=== PATIENT | male | born 1985 | race American Indian/Alaskan Native ===

== ENCOUNTER 2020-12-27 12:21 | Emergency (ER) | payer OTHER ==
[2020-12-27 12:30] VITALS: BP 121/71
--- NOTE | 2020-12-27 13:05 | XRay Report ---
Mandible series-4 views INDICATION: right jaw pain/cant open jaw all the way. COMPARISON: None. IMPRESSION: No acute osseous abnormality. Soft tissues are normal. Normal alignment. Signer Name: Abdirashid Carcamo MD Signed: 12/27/2020 1:01 PM Workstation Name: [id number]
--- NOTE | 2020-12-27 13:55 | Emergency Department Report ---
ED General Adult HPI - General Chief complaint: Dental/Oral Stated complaint: MOUTH PAIN Time Seen by Provider: 12/27/20 13:06 Source: patient Mode of arrival: Ambulatory Limitations: No Limitations - History of Present Illness Initial comments: This is a 35-year-old male without any medical history who presents to ED today complaining of right jaw pain x2 days. Patient states that he was performing oral sex on his girlfriend when all of a sudden he started experiencing right- sided jaw pain. Patient states that he is having pain with trying to ext ensively open his mouth. Patient states that he was not assaulted had no trauma or injuries to the jaw. She states that he is having jaw pain and worsened with opening and closing his mouth. Patient is able to eat and swallow without any problems. He denies throat pain or fever or any other problems. Severity scale (0 -10): 5 Quality: aching - Related Data Previous Rx's Medication Instructions Recorded Last Taken Type Acetaminophen [Tylenol Extra 500 mg PO Q6H #40 tab 12/27/20 Unknown Rx Strength] predniSONE [Deltasone] 50 mg PO QDAY 3 Days #3 tab 12/27/20 Unknown Rx Allergies Allergy/AdvReac Type Severity Reaction Status Date / Time No Known Allergies Allergy Unverified 12/27/20 12:26 ED Review of Systems ROS: Stated complaint: MOUTH PAIN Other details as noted in HPI Comment: All other systems reviewed and negative ED Past Medical Hx - Past Medical History Previous Medical History?: No - Surgical History Additional Surgical History: LEFT LEG-TIBIA - Social History Smoking Status: Never Smoker Substance Use Type: None - Medications Home Medications: Home Medications Medication Instructions Recorded Confirmed Last Taken Type Acetaminophen [Tylenol Extra 500 mg PO Q6H #40 tab 12/27/20 Unknown Rx Strength] predniSONE [Deltasone] 50 mg PO QDAY 3 Days #3 tab 12/27/20 Unknown Rx ED Physical Exam - General Limitations: No Limitations General appearance: alert, in no apparent distress - Head Head exam: Present: atraumatic, normocephalic - Eye Eye exam: Present: normal appearance, PERRL, EOMI. Absent: conjunctival injection - ENT ENT exam: Present: mucous membranes moist, other (No TMJ tenderness. No dislocation, no deformity noted) - Expanded ENT Exam Expanded Mouth exam: Present: normal external inspection Teeth exam: Present: normal inspection. Absent: dental caries Throat exam: Positive: normal inspection. Negative: tonsillar erythema, tonsillomegaly, tonsillar exudate - Neck Neck exam: Present: normal inspection, full ROM. Absent: tenderness, lymphadenopathy, thyromegaly - Respiratory Respiratory exam: Present: normal lung sounds bilaterally. Absent: respiratory distress - Cardiovascular Cardiovascular Exam: Present: regular rate, normal rhythm. Absent: systolic murmur, diastolic murmur, rubs, gallop - GI/Abdominal GI/Abdominal exam: Present: soft, normal bowel sounds - Rectal Rectal exam: Present: deferred - Extremities Exam Extremities exam: Present: normal inspection - Back Exam Back exam: Present: normal inspection - Neurological Exam Neurological exam: Present: alert, oriented X3 - Psychiatric Psychiatric exam: Present: normal affect, normal mood - Skin Skin exam: Present: warm, dry, intact, normal color. Absent: rash ED Course Vital Signs 12/27/20 12:29 Temperature 97.8 F Pulse Rate 77 Respiratory 18 Rate Blood Pressure 121/71 O2 Sat by Pulse 98 Oximetry ED Medical Decision Making - Radiology Data Radiology results: report reviewed, image reviewed Fluoro Time In Minutes: Mandible series-4 views INDICATION: right jaw pain/cant open jaw all the way. COMPARISON: None. IMPRESSION: No acute osseous abnormality. Soft tissues are normal. Normal alignment. Signer Name: Abdirashid Carcamo MD Signed: 12/27/2020 1:01 PM Workstation Name: [id number] Transcribed By: GAY Dictated By: Abdirashid Carcamo MD Electronically Authenticated By: Abdirashid Carcamo MD Signed Date/Time: 12/27/20 1301 - Medical Decision Making 35-year-old male presents with jaw muscle strain. Discussed heat compression 3 times a day. Discussed pain medicine for inflammation such as Motrin. Patient is in no acute or respiratory distress. Airway was patent patient speaking in normal sentences and no distress. X-ray shows no acute findings. Critical care attestation.: If time is entered above; I have spent that time in minutes in the direct care of this critically ill patient, excluding procedure time. ED Disposition Clinical Impression: Strain of jaw Disposition: DC-01 TO HOME OR SELFCARE Is pt being admited?: No Does the pt Need Aspirin: No Condition: Stable Instructions: Muscle Strain, [id number], How to Use Cold Therapy Additional Instructions: Make sure to follow up with the primary care physician as discussed. Take all your medications as you've been prescribed. If you have any worsening symptoms or develop new symptoms please return to ED immediately. Prescriptions: predniSONE [Deltasone] 50 mg PO QDAY 3 Days #3 tab Acetaminophen [Tylenol Extra Strength] 500 mg PO Q6H #40 tab Referrals: [facility] [Outside] - 3-5 Days [facility] [Outside] - 3-5 Days Forms: Work/School Release Form(ED) Time of Disposition: 13:57
== END 2020-12-27 14:14 | disposition home or self-care (01) ==
LOC: ED 12:21
DX: S09.11XA Strain of muscle and tendon of head, initial encounter (principal); Z79.899 Other long term (current) drug therapy; Z98.890 Other specified postprocedural states; X58.XXXA Exposure to other specified factors, initial encounter; Y93.89 Activity, other specified; Y92.89 Other specified places as the place of occurrence of the external cause; Y99.8 Other external cause status
CPT/HCPCS: 70100

== ENCOUNTER 2021-06-12 12:49 | Emergency (ER) | payer SELFPAY ==
--- NOTE | 2021-06-12 13:31 | Emergency Department Report ---
ED Lower Extremity HPI - General Chief Complaint: Extremity Injury, Lower Stated Complaint: LFT FOOT PAIN Source: patient Mode of arrival: Ambulatory Limitations: No Limitations - History of Present Illness Initial Comments: 35-year-old -[place] male presents to the emergency room complaining of left lower tibia pain. Patient states 2 weeks ago he had tried to kick heavy object and missed by his foot and ended up kicking it with his singletary. Patient says since then he did place ice. He states that he notices a little bump there and feels like it itches at that site and impinges superior to that area. Patient reports he has had a history of repair of hardware and concerned that he may have gotten a contusion. Patient states that the pain is worse when he walks. He has not taken anything for pain. He states that the surgery he had done was in October 2015 at [facility]. Patient reports he is concerned that may be something wrong with his hardware. Patient has been able to ambulate without difficulty since the incident. MD Complaint: leg injury Onset/Timin -: week(s) Injury: Leg: Left Type of Injury: blunt (Denise) Severity: mild Worsens With: weight bearing Context: direct blow Associated Symptoms: ambulatory. denies: snap/pop sensation Treatments Prior to Arrival: cold therapy - Related Data Previous Rx's Medication Instructions Recorded Last Taken Type Acetaminophen [Tylenol Extra 500 mg PO Q6H #40 tab 12/27/20 Unknown Rx Strength] predniSONE [Deltasone] 50 mg PO QDAY 3 Days #3 tab 12/27/20 Unknown Rx Allergies Allergy/AdvReac Type Severity Reaction Status Date / Time No Known Allergies Allergy Unverified 12/27/20 12:26 ED Review of Systems ROS: Stated complaint: LFT FOOT PAIN Other details as noted in HPI Comment: All other systems reviewed and negative ED Past Medical Hx - Past Medical History Previous Medical History?: Yes Additional medical history: left leg - Surgical History Past Surgical History?: Yes Additional Surgical History: LEFT LEG-TIBIA - Social History Smoking Status: Never Smoker Substance Use Type: None - Medications Home Medications: Home Medications Medication Instructions Recorded Confirmed Last Taken Type Acetaminophen [Tylenol Extra 500 mg PO Q6H #40 tab 12/27/20 Unknown Rx Strength] predniSONE [Deltasone] 50 mg PO QDAY 3 Days #3 tab 12/27/20 Unknown Rx ED Physical Exam - General Limitations: No Limitations General appearance: alert, in no apparent distress - Head Head exam: Present: atraumatic, normocephalic - Eye Eye exam: Present: normal appearance - ENT ENT exam: Present: mucous membranes moist - Neck Neck exam: Present: normal inspection - Respiratory Respiratory exam: Present: normal lung sounds bilaterally. Absent: respiratory distress - Cardiovascular Cardiovascular Exam: Present: regular rate, normal rhythm. Absent: systolic murmur, diastolic murmur, rubs, gallop - GI/Abdominal GI/Abdominal exam: Present: soft, normal bowel sounds - Rectal Rectal exam: Present: deferred - Extremities Exam Extremities exam: Present: normal inspection - Expanded Lower Extremity Exam Left Upper Leg exam: Present: normal inspection Knee exam: Present: normal inspection, full ROM. Absent: tenderness, swelling Lower Leg exam: Present: full ROM, swelling (Mild tenderness in the midshaft addition.). Absent: tenderness, abrasion, laceration, deformity, erythema Ankle exam: Present: normal inspection Foot/Toe exam: Present: normal inspection, full ROM Gait: Positive: observed and normal - Back Exam Back exam: Present: normal inspection - Neurological Exam Neurological exam: Present: alert, oriented X3, normal gait - Psychiatric Psychiatric exam: Present: normal affect, normal mood - Skin Skin exam: Present: warm, dry, intact, normal color. Absent: rash ED Course Vital Signs 06/12/21 06/12/21 13:02 14:34 Temperature 98.2 F Pulse Rate 74 65 Respiratory 18 16 Rate Blood Pressure 129/50 Blood Pressure 130/66 [Right] O2 Sat by Pulse 99 99 Oximetry ED Lower Extremity MDM - Radiology Data Radiology results: report reviewed [address] [address] XRay Report Signed Patient: MIRELLA CM I MR#: [id number] : 1985 Acct:[id number] Age/Sex: 35 / M ADM Date: 06/12/21 Loc: ED Attending Dr: Ordering Physician: DIAMANTE GEIGER Date of Service: 06/12/21 Procedure(s): XR tibia fibula 2V LT Accession Number(s): [id number] cc: DIAMANTE GEIGER Fluoro Time In Minutes: LEFT TIBIA-FIBULA 2 VIEW(S) INDICATION / CLINICAL INFORMATION: injury to LLE with pain COMPARISON: None available. FINDINGS: BONES / JOINT(S): No acute fracture or subluxation. No significant arthritis. Patient is status post intramedullary nail through the tibia. No hardware complication. There is post traumatic change to the proximal fibula. SOFT TISSUES: No significant abnormality. ADDITIONAL FINDINGS: None. Signer Name: Presley Tobin DO Signed: 06/12/2021 1:53 PM Workstation Name: [id number] Transcribed By: DESHAUN Dictated By: PRESLEY TOBIN DO Electronically Authenticated By: PRESLEY TOBIN DO Signed Date/Time: 06/12/21 1353 DD/ 1346 TD/TT: - Medical Decision Making 35-year-old -[place] male presents to the emergency room complaining of left lower tibia pain. Patient states 2 weeks ago he had tried to kick heavy object and missed by his foot and ended up kicking it with his singletary. Patient says since then he did place ice. He states that he notices a little bump there and feels like it itches at that site and impinges superior to that area. Patient reports he has had a history of repair of hardware and concerned that he may have gotten a contusion. Patient states that the pain is worse when he walks. He has not taken anything for pain. He states that the surgery he had done was in October 2015 at [facility]. Patient reports he is concerned that may be something wrong with his hardware. Patient has been able to ambulate without difficulty since the incident. X-ray of tib-fib left foot ordered. Result shows no acute fractures shows some posttraumatic changes on the fibula. Patient has full range of motion ambulating without any difficulties. Discussed with patient that he needs to follow-up in orthopedic provider. Patient can take pain medication if needed. Critical care attestation.: If time is entered above; I have spent that time in minutes in the direct care of this critically ill patient, excluding procedure time. ED Disposition Clinical Impression: Contusion of left lower leg, initial encounter Disposition: HOME / SELF CARE / HOMELESS Is pt being admited?: No Does the pt Need Aspirin: No Condition: Stable Instructions: Contusion, [id number] Additional Instructions: X-ray is negative for any acute fracture subluxation or dislocation. Does show some post traumatic fibula changes. Recommend to follow-up with an orthopedic provider. Tylenol or ibuprofen for pain. Referrals: SLICK MCCURDY MD [Staff Physician] - 3-5 Days Forms: Work/School Release Form(ED) Time of Disposition: 14:08
--- NOTE | 2021-06-12 13:57 | XRay Report ---
LEFT TIBIA-FIBULA 2 VIEW(S) INDICATION / CLINICAL INFORMATION: injury to LLE with pain COMPARISON: None available. FINDINGS: BONES / JOINT(S): No acute fracture or subluxation. No significant arthritis. Patient is status post intramedullary nail through the tibia. No hardware complication. There is post traumatic change to th e proximal fibula. SOFT TISSUES: No significant abnormality. ADDITIONAL FINDINGS: None. Signer Name: Presley Fry DO Signed: 06/12/2021 1:53 PM Workstation Name: [id number]
[2021-06-12 14:41] VITALS: BP 130/66
== END 2021-06-12 14:34 | disposition home or self-care (01) ==
LOC: ED 12:49
DX: S80.12XA Contusion of left lower leg, initial encounter (principal); W22.8XXA Striking against or struck by other objects, initial encounter; Y93.89 Activity, other specified; Y92.89 Other specified places as the place of occurrence of the external cause; Y99.8 Other external cause status
CPT/HCPCS: 99283